=== PATIENT | male | born 1960 | race Caucasian/White ===

== ENCOUNTER 2024-01-24 12:44 | Day surgery (SDC) | payer MEDICARE, SELFPAY ==
--- NOTE | 2024-01-22 11:03 | SUR.PREOP ---
1103: VM reached. LM with call back.
[2024-01-22 12:43] VITALS: BMI 32.5
[2024-01-24 12:56] VITALS: BP 161/90; PULSE 74; RESP 16; TEMP 36.1; O2SAT 98
[2024-01-24] MEDS: 0.9 % SODIUM CHLORIDE 1000ML 1,000 ML 25 ML IV (13:04)
--- NOTE | 2024-01-24 13:29 | EXP.ANES.CKL ---
[facility] Disclaimer: The information contained in this section may have been updated after the patient was seen, as this information can be updated by other users. Medical History BPH without urinary obstruction H/O neuropathy H/O hyperlipidemia H/O: HTN (hypertension) Surgical History H/O colonoscopy with polypectomy H/O total knee replacement Family History Other Family history of [place] (myocardial infarction) Family history of skin cancer Social History Smoking Status: Never smoker alcohol intake: never substance use type: denies use current occupational status: retired Travel in the last 8 weeks: None [facility] Anesthesia Checklist Patient Identification Patient Identification: Arm Band and Verbal (Name & ) Structural Data Admitted From: Home Planned Operative Procedure/s: Colonoscopy Consent for Planned Operative Procedure(s) Verified: Yes Verified Documents: Surgical Consent and History and Physical NPO Status Verified Time NPO: 11:00 (Apple juice) Additional verifications Anesthesia Reactions: No Airway Assessment Mallampati Score:: Class II C-Spine Mobility Assessed: Yes TMJ Mobility Assessed: Yes Dentition: Good Dentition Neurological Assessment Level of Consciousness: Awake Hx Seizures: No Numbness or tingling in extremities: No Anesthesia Plan Anesthesia Risk discussed: Yes Anesthesia Plan: Verified ASA Class: III Anesthesia Type: MAC
[2024-01-24 13:43] VITALS: O2SAT 98
--- NOTE | 2024-01-24 13:48 | EXP.HP ---
History of Present Illness *Admission Date: 01/24/24 *Reason for visit:: Personal history of adenomatous colon polyps/surveillance *History of present illness: Mr. Henderson is a 64-year-old gentleman who is here for follow-up surveillance colonoscopy secondary to a personal history of adenomatous polyps. He had 7 polyps removed 5 years ago and some of these were slightly larger adenomas. The examination is deemed medically necessary for colonoscopy. The patient has been seen, interviewed and examined prior to the procedure by both myself and the anesthesia provider. [facility] Disclaimer: The information contained in this section may have been updated after the patient was seen, as this information can be updated by other users. Medical History BPH without urinary obstruction H/O neuropathy H/O hyperlipidemia H/O: HTN (hypertension) Surgical History H/O colonoscopy with polypectomy H/O total knee replacement Family History Other Family history of [place] (myocardial infarction) Family history of skin cancer Social History (Updated 01/24/24 @ 13:46 by Garo Kaplan CRNA) Smoking Status: Never smoker alcohol intake: never substance use type: denies use current occupational status: retired Travel in the last 8 weeks: None Review of Systems Review of Systems Review of systems (narrative): Negative *Cardiovascular Comments: Negative *Gastrointestinal Comments: Negative *Genitourinary Comments: Negative *Musculoskeletal Comments: Negative *Neurologic Comments: Negative Meds Home Medications and Allergies Home Medications ?Medication ?Instructions ?Recorded ?Confirmed ?Type aspirin 81 mg tablet 81 mg PO DAILY 01/22/24 01/24/24 History losartan 25 mg tablet 25 mg PO DAILY 01/22/24 01/24/24 History pregabalin 75 mg capsule (Lyrica) 75 mg PO DAILY 01/22/24 01/24/24 History simvastatin 5 mg tablet 5 mg PO DAILY 01/22/24 01/24/24 History tamsulosin 0.4 mg capsule 0.4 mg PO DAILY 01/22/24 01/24/24 History semaglutide 2 mg/dose (8 mg/3 mL) 2 mg SQ WEEKLY 01/24/24 01/24/24 History subcutaneous pen injector (Ozempic) New Prescriptions to Start Prescriptions: Allergies Allergy/AdvReac Type Severity Reaction Status Date / Time Sulfa (Sulfonamide Allergy Rash Verified 01/22/24 12:42 Antibiotics) Exam Data for Last 24 hours Vital signs and Labs for Last 24 Hours: Temp Pulse Resp BP Pulse Ox O2 Del Method 97 F L 74 16 161/90 H 98 Room Air 01/24/24 12:56 01/24/24 12:56 01/24/24 12:56 01/24/24 12:56 01/24/24 12:56 01/24/24 12:56 I & O for Last 24 hours: Intake & Output 01/21/24 01/22/24 01/23/24 01/24/24 23:59 23:59 23:59 23:59 Weight 268 lb *Routine HEENT Exam Head: Present normocephalic Eye: Present EOMI and PERRL ENT: Present mucous membranes moist *Routine Neck Exam Neck: Present supple *Routine Respiratory Exam Respiratory: Present CTA bilaterally *Routine Cardiovascular Exam Cardiovascular: Present RRR *Routine Abdominal Exam Abdominal: Present soft and normoactive bowel sounds; Absent tenderness *Routine Rectal Exam Rectal:: deferred *Routine Genitalia Exam Genitalia:: deferred *Routine Extremities Exam Extremities: Absent cyanosis, clubbing or edema *Routine Skin Exam Skin: Present warm; Absent rash *Routine Neurological Exam Neurological: Present alert and oriented X3 Assessment and Plan *Assessment and plan (1) Personal history of adenomatous and serrated colon polyps: Status: Acute Category: Medical Code(s): Z86.0101 - Personal history of adenomatous and serrated colon polyps Plan A/P: 1. Personal history of adenomatous colon polyps (multiple?7 polyps removed last time) with last colonoscopy 5 years ago is the preprocedural diagnosis. The patient will be anesthetized/sedated using MAC sedation. The patient has been seen and examined. Cardiac and lung assessment prior to the examination is stable. Proceed with planned surveillance colonoscopy
--- NOTE | 2024-01-24 13:49 | P.PCN_ITS ---
[facility] Procedure Note Date: 01/24/24 Time: 14:04 Procedure Note:: Colonoscopy Procedure Report: Colonoscopy with cold snare polypectomy Endoscopist: Damon Jolley II, MD Referring physician: Mehrdad Royal MD Date of Procedure: January 24, 2024 Equipment: Olympus 190 variable stiffness pediatric colonoscope Sedation: MAC sedation Indication: Mr. Henderson is a 64-year-old gentleman who is here for follow-up surveillance colonoscopy. He had a colonoscopy 5 years ago at which time 7 polyps were removed (adenomatous polyps). He reports no abdominal pain, weight loss, change in his bowel habits or rectal bleeding. He reports no family history of colon cancer. He did have some bowel irregularity on Ozempic initially but has now adjusted to this and has regular bowel function. Procedure: Prior to the procedure, a history and physical exam was performed, and patient's medications and allergies were reviewed. The risks, benefits and alternatives of the sedation and procedure were discussed with the patient. All questions were answered and informed consent was obtained. The patient was brought to the procedure room. Patient identification and proposed procedure were verified by the physician and the nurse. The patient was placed in a left lateral decubitus position and the scope was passed under direct vision. Throughout the procedure, the patient's blood pressure, pulse, and oxygen saturations were monitored continuously. The colonoscopy was accomplished without difficulty. The patient tolerated the procedure well. Findings: On digital rectal examination there was normal rectal tone. There were no external hemorrhoids. The colonoscope was introduced through the anal canal to the rectum and advanced to the cecum. The ileocecal valve and appendiceal orifice were identified. The scope was advanced a short distance into the ileum which appeared grossly normal. The scope was then withdrawn into the colon. There was a single 5 mm polyp in the transverse colon removed via cold snare polypectomy. The remaining cecum, ascending, transverse, descending, sigmoid and rectum were grossly normal. There were no other mucosal abnormalities identified. Upon retroflexion within the rectum there were grade 2 internal hemorrhoids.The preparation was good throughout with Morrill Preparation Score of 8 out of 9. The cecal time was 11 minutes. Impression: 1. Transverse colon polyp (5 mm) 2. Grade 2 internal hemorrhoids Plan: I will follow-up the polyp histology and recommend repeat surveillance colonoscopy again in 7 years if the polyp is adenomatous.
[2024-01-24 14:06] VITALS: BP 129/81; PULSE 78; RESP 16; TEMP 36.6; O2SAT 98
[2024-01-24 14:16] VITALS: BP 126/76; PULSE 72; RESP 18; O2SAT 98
[2024-01-24 14:26] VITALS: BP 151/67; PULSE 77; RESP 18; O2SAT 98
== END 2024-01-24 14:36 | disposition home or self-care (01) ==
PROVIDERS: PCP Internal Medicine; Visit Provider Internal Medicine Gastroenterology
PROC: (CPT 45385; principal; 2024-01-24 14:30)
DX: Z86.0101 Personal history of adenomatous and serrated colon polyps (principal); K63.5 Polyp of colon; K64.1 Second degree hemorrhoids
CPT/HCPCS: 45385; J7030

== ENCOUNTER 2024-11-24 06:10 | Day surgery (SDC) | payer MEDICARE, SELFPAY ==
--- NOTE | 2024-11-20 06:53 | EXP.HP ---
History of Present Illness *Admission Date: 11/24/24 *History of present illness: Mr. Henderson is a 64-year-old gentleman who is here for diagnostic/therapeutic upper endoscopy secondary to dysphagia. He does have some regurgitation and vomiting. The examination is deemed medically necessary for EGD. The patient has been seen, interviewed and examined prior to the procedure by both myself and the anesthesia provider. [facility] Disclaimer: The information contained in this section may have been updated after the patient was seen, as this information can be updated by other users. Medical History BPH without urinary obstruction H/O neuropathy H/O hyperlipidemia H/O: HTN (hypertension) Surgical History H/O colonoscopy with polypectomy H/O total knee replacement Family History Other Family history of [place] (myocardial infarction) Family history of skin cancer Social History (Updated 11/24/24 @ 06:40 by Florinda Gray RN) Smoking Status: Never smoker alcohol intake: never substance use type: denies use current occupational status: retired Travel in the last 8 weeks?: None Have you lived/traveled outside US in past 30 days?: No Contact w/someone who lives/traveled outside US past 30 days?: No Exposure to someone with infectious disease in past 14 days?: No Do you have a fever (greater than 100.4 F or 38 C)?: No Have you tested positive for COVID-19?: No Exposed to someone with COVID-19 in past 14 days?: No Do you have a sore throat?: No Do you have a cough?: No Do you have any weakness?: No Are you experiencing any nausea/vomitting?: No Do you have any diarrhea?: No Are you experiencing any unusual bleeding?: No Do you have any muscle aches/pain?: No Do you have any abdominal pain?: No Are you experiencing loss of taste or smell?: No Review of Systems Review of Systems Review of systems (narrative): Negative *Cardiovascular Comments: Negative *Gastrointestinal Comments: Negative *Genitourinary Comments: Negative *Musculoskeletal Comments: Negative *Neurologic Comments: Negative Meds Home Medications and Allergies Home Medications ?Medication ?Instructions ?Recorded ?Confirmed ?Type aspirin 81 mg tablet 81 mg PO DAILY 01/22/24 11/24/24 History simvastatin 5 mg tablet 10 mg PO DAILY 01/22/24 11/24/24 History tamsulosin 0.4 mg capsule 0.4 mg PO DAILY 01/22/24 11/24/24 History semaglutide 2 mg/dose (8 mg/3 mL) 2 mg SQ WEEKLY 01/24/24 11/24/24 History subcutaneous pen injector (Ozempic) capsaicin-skin cleanser 8 % 1 ea topical MONTHLY 10/02/24 11/24/24 History topical kit (Qutenza) losartan 100 mg tablet 100 mg PO DAILY 10/02/24 11/24/24 History polyethylene glycol 3350 17 17 g PO DAILY PRN Constipation 10/02/24 11/24/24 History gram/dose oral powder (Miralax) pregabalin 150 mg capsule 150 mg PO TID 10/02/24 11/24/24 History psyllium husk 3.4 gram/5.4 gram 1 tbsp PO DAILY PRN Constipation 10/02/24 11/24/24 History oral powder (Metamucil) New Prescriptions to Start Prescriptions: Allergies Allergy/AdvReac Type Severity Reaction Status Date / Time Sulfa (Sulfonamide Allergy Rash Verified 11/24/24 06:41 Antibiotics) Exam *Routine HEENT Exam Head: Present normocephalic Eye: Present EOMI and PERRL ENT: Present mucous membranes moist *Routine Neck Exam Neck: Present supple *Routine Respiratory Exam Respiratory: Present CTA bilaterally *Routine Cardiovascular Exam Cardiovascular: Present RRR *Routine Abdominal Exam Abdominal: Present soft and normoactive bowel sounds; Absent tenderness *Routine Rectal Exam Rectal:: deferred *Routine Genitalia Exam Genitalia:: deferred *Routine Extremities Exam Extremities: Absent cyanosis, clubbing or edema *Routine Skin Exam Skin: Present warm; Absent rash *Routine Neurological Exam Neurological: Present alert and oriented X3 Assessment and Plan *Assessment and plan (1) Dysphagia: Status: Acute Category: Medical Code(s): R13.10 - Dysphagia, unspecified (2) Regurgitation of food: Status: Acute Category: Medical Code(s): R11.10 - Vomiting, unspecified (3) Vomiting: Status: Acute Category: Medical Code(s): R11.10 - Vomiting, unspecified Plan A/P: 1. Dysphagia with regurgitation of food and vomiting is the preprocedural diagnosis. The patient will be anesthetized/sedated using MAC sedation. The patient has been seen and examined. Cardiac and lung assessment prior to the examination is stable. Proceed with planned diagnostic/therapeutic EGD.
[2024-11-20 12:51] VITALS: BMI 32.8
[2024-11-24 06:29] VITALS: BP 142/79; PULSE 60; RESP 18; TEMP 36.2; O2SAT 98; BMI 32.8
[2024-11-24 06:47] LABS: POC Glucose,Bedside 90 gm/dL (70-110)
[2024-11-24] MEDS: LACTATED RINGERS 1000ML 1,000 ML 50 ML IV (06:48)
--- NOTE | 2024-11-24 07:14 | P.PNANES_ITS ---
[facility] Disclaimer: The information contained in this section may have been updated after the patient was seen, as this information can be updated by other users. Medical History BPH without urinary obstruction H/O neuropathy H/O hyperlipidemia H/O: HTN (hypertension) Surgical History H/O colonoscopy with polypectomy H/O total knee replacement Family History Other Family history of [place] (myocardial infarction) Family history of skin cancer Social History (Updated 11/24/24 @ 06:40 by Florinda Gray RN) Smoking Status: Never smoker alcohol intake: never substance use type: denies use current occupational status: retired Travel in the last 8 weeks?: None Have you lived/traveled outside US in past 30 days?: No Contact w/someone who lives/traveled outside US past 30 days?: No Exposure to someone with infectious disease in past 14 days?: No Do you have a fever (greater than 100.4 F or 38 C)?: No Have you tested positive for COVID-19?: No Exposed to someone with COVID-19 in past 14 days?: No Do you have a sore throat?: No Do you have a cough?: No Do you have any weakness?: No Are you experiencing any nausea/vomitting?: No Do you have any diarrhea?: No Are you experiencing any unusual bleeding?: No Do you have any muscle aches/pain?: No Do you have any abdominal pain?: No Are you experiencing loss of taste or smell?: No [facility] Anesthesia Checklist Patient Identification Patient Identification: Arm Band and Verbal (Name & ) Structural Data Admitted From: Home Planned Operative Procedure/s: EGD Consent for Planned Operative Procedure(s) Verified: Yes Verified Documents: Surgical Consent NPO Status Verified Time NPO: 00:00 Chart Verification Results Verified: None Additional verifications Anesthesia Reactions: No Airway Assessment Mallampati Score:: Class II C-Spine Mobility Assessed: Yes TMJ Mobility Assessed: Yes Dentition: Good Dentition Neurological Assessment Level of Consciousness: Awake, Alert and Appropriate Hx Seizures: No Numbness or tingling in extremities: No Anesthesia Plan Anesthesia Risk discussed: Yes Anesthesia Plan: Verified ASA Class: II Anesthesia Type: MAC
--- NOTE | 2024-11-24 07:32 | HMH.PROCNOTE ---
[facility] Procedure Note Date: 11/24/24 Time: 07:45 Procedure Note:: Upper Endoscopy Procedure Report: Esophagogastroduodenoscopy with cold biopsies and TTS balloon dilation Endoscopost: Damon Jolley II, MD Referring Physician: Mehrdad Royal MD Date of Procedure: November 24, 2024 Equipment: Olympus GIF-1100 standard upper endoscope Sedation: MAC sedation Indications: Mr. Henderson is a 64-year-old gentleman who is here for diagnostic/therapeutic upper endoscopy secondary to dysphagia. This occurs with solid foods (especially chicken) and several times he has had difficulty getting the food to move up or down with partial food impaction. He eventually does regurgitate. He does state that this is a little better recently. He has never had an upper endoscopy. He reports no heartburn or reflux. He has had no indigestion, bloating, belching or abdominal discomfort. He does state that sometimes he feels like he is breathing ice or cold air when the air temperature is normal. Procedure: Prior to the procedure, a history and physical exam was performed, and patient's medications and allergies were reviewed. The risks, benefits and alternatives of the sedation and procedure were discussed with the patient. All questions were answered and informed consent was obtained. The patient was brought to the procedure room. Patient identification and proposed procedure were verified by the physician and the nurse. The patient was placed in a left lateral decubitus position and the scope was passed under direct vision. Throughout the procedure, the patient's blood pressure, pulse, and oxygen saturations were monitored continuously. The upper GI endoscopy was accomplished without difficulty. The patient tolerated the procedure well. Findings: The scope was passed directly into the upper esophagus and advanced to the third portion of the duodenum. The post bulbar duodenum, ampulla and duodenal bulb were normal with normal mucosa and conniventes. A cold biopsy was taken from the second portion of the duodenum for the disaccharidase assay. The scope was withdrawn through a normal duodenal bulb and pylorus into the stomach. There was mild to moderate chronic gastritis of the proximal stomach with mosaic pattern suggestive of H. pylori. Cold biopsies were taken along the lesser curvature for histology and to rule out H. pylori. Upon retroflexion there was no hiatal hernia. The scope was then withdrawn into the esophagus. There was superficial linear ulceration within the distal 3 to 4 cm of esophagus consistent with grade C?D reflux esophagitis. Cold biopsies were taken from the distal and midesophagus. There was mild corrugation. There was no stricturing or rings identified. The entire esophagus was dilated to 60 Italian/20 mm with a TTS hydrostatic balloon. There was mild resistance at the cricopharyngeus. The remainder of the esophageal mucosa was normal. Impression: 1. Grade C?D reflux esophagitis (LA classification) 2. Chronic gastritis?rule out H. pylori Plan: I will follow-up the biopsies and initiate Voquezna (if covered). I will discuss the findings with the patient and family.
[2024-11-24 07:46] VITALS: BP 165/87; PULSE 70; RESP 18; TEMP 36.2; O2SAT 95
[2024-11-24 07:56] VITALS: BP 168/84; PULSE 71; RESP 18; O2SAT 95
[2024-11-24 08:06] VITALS: BP 159/88; PULSE 65; RESP 18; O2SAT 96
[2024-11-24 08:16] VITALS: BP 129/70; PULSE 65; RESP 18; O2SAT 96
[2024-11-24 08:35] VITALS: BP 143/69; PULSE 63; RESP 18; TEMP 36.2; O2SAT 96
[2024-11-27 14:24] LABS: Interpretation Notes (.); Lactase 1.94 (>/= 14.0); Maltase 47.44 (>/= 110.0); Palatinase 2.42 (>/= 8.5); Reference Notes (.); Sucrase 9.68 (>/= 25.0)
== END 2024-11-24 08:35 | disposition home or self-care (01) ==
PROVIDERS: PCP Internal Medicine; Visit Provider Internal Medicine Gastroenterology
PROC: 0DJ08ZZ Inspection of Upper Intestinal Tract, Via Natural or Artificial Opening Endoscopic (ICD-10-PCS; CPT 43239; principal; 2024-11-24 07:30)
DX: K21.00 Gastro-esophageal reflux disease with esophagitis, without bleeding (principal); K29.50 Unspecified chronic gastritis without bleeding; K22.4 Dyskinesia of esophagus; N40.0 Benign prostatic hyperplasia without lower urinary tract symptoms; E78.5 Hyperlipidemia, unspecified; I10 Essential (primary) hypertension; Z79.82 Long term (current) use of aspirin; Z88.2 Allergy status to sulfonamides
CPT/HCPCS: 43239; 43249; 82657; 82962; 88305; C1726; J2003; J2704; J7120